=== PATIENT | male | born 1960 ===

== ENCOUNTER → 2017-02-28 | Outpatient (CLI) | payer OTHER ==
[~2017-02-28] VITALS: Ht 182.9 cm; Wt 84.8 kg
[~2017-02-28] MED LIST: ALOGLIPTIN25 MG; AMLODIPINE BESY10 MG; COZAAR100 MG; FARXIGA10 MG; SIMVASTATIN20 MG
== END | disposition home or self-care (01) ==
LOC: PPHC 13:11
DX: E10.9 Type 1 diabetes mellitus without complications (principal); I10 Essential (primary) hypertension